=== PATIENT | female | born 1970 | race Caucasian/White ===

== ENCOUNTER 2017-02-04 19:10 | Emergency (ER) | payer BC ==
[2017-02-04 19:22] VITALS: BP 147/77
--- NOTE | 2017-02-04 19:26 | ERNOTE ---
Medical Problem HPI - Narrative Date of Service: 02/04/17 - General Chief Complaint: Foreign Body Time Seen by Provider: 02/04/17 19:25 Source: patient, RN notes reviewed Exam Limitations: no limitations - Immun/Allergies/Home Medications Immunizations: IMMUNIZATION HX Immunizations Up to Date Yes History of Influenza Vaccine No Hx Pneumococcal Vaccination No Allergies/Adverse Reactions: Allergies No Known Allergies Allergy (Unverified 02/04/17 19:21) Home Medications: HOME MEDICATIONS NK [No Home Medication] 02/04/17 [Last Taken Unknown] - History of Present History Narrative: 46 y/o female to the ED for a possible retained tampon. She reports inserting a tampon 2 days ago. She was masturbating with a vibrator later that night and thought the tampon was still in place. She currently denies any pain or foreign body sensation, but believes the tampon is lodged in the vagina where she cannot reach it. Date (Duration): 02/02/17 Review of Systems - Review of Systems Constitutional: Absent: fever, chills, malaise EYE: Present: no symptoms reported ENT: Present: no symptoms reported Respiratory: Present: no symptoms reported Cardiology: Absent: chest pain, palpitations, syncope Gastrointestinal/Abdominal: Absent: nausea, vomiting Genitourinary: Absent: pain, dysuria, discharge Musculoskeletal: Absent: muscle pain, joint pain Skin: Absent: rash, lesions Neurological: Absent: headache, dizziness/light-headedness Endocrine: Present: no symptoms reported Hematologic/Lymphatic: Present: no symptoms reported Psych: Present: no symptoms reported - Patient's Past Medical History Patient History - Medical: No pertinent hx Patient History - Cardiac/Respiratory: No pertinent hx Patient History - Cancer: No Hx of Cancer Patient History - Surgical Procedures: Patient History - Other: None LMP (females 10-50): this week - Social History Living Situations: home Psych History: No pertinent hx Smoking Status: Current every day smoker - Immunizations Immunizations Up to Date: Yes Hx Pneumococcal Vaccination: No History of Influenza Vaccine: No Physical Exam - Physical Exam General Appearance: Present: wd/wn, alert, no apparent distress Respiratory: Present: no respiratory distress, no accessory muscle use Cardiovascular/Chest: Present: normal peripheral pulses Extremity Exam: Present: normal inspection, normal range of motion, no edema Neurological Exam: Present: alert, oriented, normal mood/affect Skin Exam: Present: normal color, warm/dry Pelvic Exam: Present: other - No foreign body visualized. Absent: active bleeding, discharge, lesions, cervical motion tendernes ED Progress - Vital Signs Patient's Vital Signs:: I have reviewed the patient's vital signs. Vital Signs: Vital Signs 02/04/17 19:19 Temperature 36.8 C Pulse Rate 59 L Respiratory 16 Rate Blood Pressure 147/77 O2 Sat by Pulse 98 Oximetry - Progress/Reassessment Chief Complaint: Foreign Body Progress:: Unchanged Departure - Departure Clinical Impression: Feared condition not demonstrated Disposition: Home self-care Condition: Good Additional Instructions: Follow up as needed for odor, discharge, pain or other concerns
== END 2017-02-04 19:37 | disposition home or self-care (01) ==
LOC: ER 19:10
DX: Z03.89 Encounter for observation for other suspected diseases and conditions ruled out (principal); F17.200 Nicotine dependence, unspecified, uncomplicated